=== PATIENT | female | born 1975 | race Caucasian/White ===

== ENCOUNTER 2021-11-28 14:40 | Emergency (ER) | payer MEDICARE, MEDICAID, SELFPAY ==
[2021-11-28] VITALS (21 sets, daily range): BP systolic 92–139; BP diastolic 50–105; PULSE 56–71; RESP 18; O2SAT 95–98
--- NOTE | 2021-11-28 14:50 | W.ED.GENAD ---
Discharge Plan Disposition Patient Disposition: HOME Condition: Stable Discharge Details Clinical Impression: Gastroenteritis Primary Care Provider: Jackie Akhtar ED Provider: Jg Katz Home Meds and New Rx's Prescriptions: Continued ferrous sulfate 325 mg (65 mg iron) Capsule, Extended Release 325 mg PO BID 0RF gabapentin 600 mg Tablet 1,200 mg TID 0RF ondansetron HCl 8 mg Tablet 8 mg TID 0RF hydromorphone [Dilaudid] 8 mg Tablet 8 mg QID 0RF clonazepam [Klonopin] 1 mg Tablet 1 mg TID 0RF liothyronine [Cytomel] 5 mcg Tablet 5 mcg DAILY 0RF hydrocodone-acetaminophen 10-500 mg Tablet 10 - 500 tab TID 0RF levothyroxine [Synthroid] 125 mcg Tablet 125 mcg DAILY 0RF sumatriptan succinate 6 mg/0.5 mL Pen Injector SUBCUT PRN0RF escitalopram oxalate [Lexapro] 20 mg Tablet 30 mg DAILY 0RF bupropion HCl [Wellbutrin XL] 300 mg Tablet Extended Release 24 Hr 300 mg PO DAILY 0RF acetaminophen [Tylenol] 325 mg Capsule 325 mg PO ONCE PRN0RF Discharge Instructions Instructions: Gastroenteritis (ED) Additional Instructions: As discussed if you have any new or significant worsening of your symptoms please return immediately to the emergency department for reassessment. Otherwise continue to stay well-hydrated and take your Zofran along with your previously prescribed medications. Please follow-up with [facility] for further follow-up from your surgical procedure. Referrals: [facility] [Outside] (Please call their office and arrange follow-up for reassessment of your postoperative incision and procedure.) Discharge Data Discharge Date/Time-TO BE ENTERED AT DEPARTURE: 11/28/21 19:34 Medical Decision Making <MALINDA Ridley - Last Filed: 11/29/21 19:37> Patient is a pleasant 46-year-old female presenting today with chief complaint of abdominal pain, fevers, nausea/vomiting, general malaise. She reports that she underwent a revision of her tummy On 11/18/2021. Subsequently developed fevers on 11/23/2021. States along with this, she began having increasing pain primarily in the left lower quadrant. Had otherwise been feeling well up until this point. States that she is intermittently also had shortness of breath, chest pain. States that she had a T-max of 101?F at home. States that she did take anti-inflammatory today prior to arrival. States that she had a bowel movement this morning that it was quite soft. Vomited x4, all nonbloody, today. Is currently endorsing nausea. States that she does have Zofran at home but that she did not take this. Patient reports that she did call [facility] on 11/23/2021 regarding her fever but has not reached out to them again. On exam, patient appears nontoxic. Her incision is healing quite well with no surrounding erythema, warmth, drainage. Her lungs are clear. Normal cardiac exam. Abdomen is tender in the left lower quadrant but no masses noted. Calves are soft and nontender, no lower extremity edema. Past medical history reviewed from [facility]. Pertinent for Jensen's thyroiditis, chronic headaches, asthma, chronic back pain, hypertension, subarachnoid hemorrhage, hypercholesterolemia, drug abuse and dependence, depression, COPD, anxiety, agoraphobia, panic disorder, bilateral pulmonary emboli, chronic benzodiazepine use, postoperative infection. Patient does describe using IV Bactrim in the postop setting after her initial panniculectomy. Differential at this time is quite broad. I did consider pulmonary embolism she does have a history of PE and DVT. She does not have clinical evidence of DVT at this time. As her D-dimer is slightly be elevated with her recent surgery, will move forward with CT for PE protocol. Consider possible surgical infection although her incisions look quite good at this time. Will obtain blood cultures, urine cultures. Also considered unrelated pathology associated with her left-sided abdominal pain such as diverticulitis. Will obtain imaging from baseline labs and reassess. Also considered noninfectious etiologies such as medication withdrawal as patient does have history of drug abuse and has been on 8 mg of Dilaudid 4 times daily. At the end of my shift, labs and imaging pending. Care transition to Jg Katz NP at bedside. <Jg Katz NP - Last Filed: 12/02/21 08:16> Patient is a pleasant 46-year-old female presenting today with chief complaint of abdominal pain, fevers, nausea/vomiting, general malaise. She reports that she underwent a revision of her tummy On 11/18/2021. Subsequently developed fevers on 11/23/2021. States along with this, she began having increasing pain primarily in the left lower quadrant. Had otherwise been feeling well up until this point. States that she is intermittently also had shortness of breath, chest pain. States that she had a T-max of 101?F at home. States that she did take anti-inflammatory today prior to arrival. States that she had a bowel movement this morning that it was quite soft. Vomited x4, all nonbloody, today. Is currently endorsing nausea. States that she does have Zofran at home but that she did not take this. Patient reports that she did call [facility] on 11/23/2021 regarding her fever but has not reached out to them again. On exam, patient appears nontoxic. Her incision is healing quite well with no surrounding erythema, warmth, drainage. Her lungs are clear. Normal cardiac exam. Abdomen is tender in the left lower quadrant but no masses noted. Calves are soft and nontender, no lower extremity edema. Past medical history reviewed from [facility]. Pertinent for Jensen's thyroiditis, chronic headaches, asthma, chronic back pain, hypertension, subarachnoid hemorrhage, hypercholesterolemia, drug abuse and dependence, depression, COPD, anxiety, agoraphobia, panic disorder, bilateral pulmonary emboli, chronic benzodiazepine use, postoperative infection. Patient does describe using IV Bactrim in the postop setting after her initial panniculectomy. Differential at this time is quite broad. I did consider pulmonary embolism she does have a history of PE and DVT. She does not have clinical evidence of DVT at this time. As her D-dimer is slightly be elevated with her recent surgery, will move forward with CT for PE protocol. Consider possible surgical infection although her incisions look quite good at this time. Will obtain blood cultures, urine cultures. Also considered unrelated pathology associated with her left-sided abdominal pain such as diverticulitis. Will obtain imaging from baseline labs and reassess. Also considered noninfectious etiologies such as medication withdrawal as patient does have history of drug abuse and has been on 8 mg of Dilaudid 4 times daily. At the end of my shift, labs and imaging pending. Care transition to Jg Katz NP at bedside. [id number] see above for initial documentation and physical exam and plan for patient. I agree with Hoa Pope's initial assessment and plan. Reviewed further labs which are overall nonworrisome. Patient does have slight elevation of WBC neutrophils and monocytes but otherwise unremarkable work-up. Reviewed CT imaging that shows a small right lower lung nodule but otherwise no acute findings are noted on chest or abdomen pelvis. Reviewed findings with patient and she stated previous knowledge of nodule and that she has been followed by department for this. Further discussion with patient is that she has been having some diarrhea along with her abdominal pain and vomiting today. I suspect possible gastroenteritis given otherwise benign work-up. Offered to contact patient's surgeon but given no postoperative worrisome findings on imaging patient stated that she would call their office and follow-up with them on her own. We will plan to treat patient symptoms conservatively with patient having clear understanding to return for any new or significant worsening of symptoms. After discussion of diagnosis and plan of care patient has no further needs, questions, or concerns and states clear understanding to return to the emergency department for any worsening symptoms. Imaging Data Radiologic Study: Imaging: CT Scan Radiologist's impression: CT Chest IMPRESSION: 1. No pulmonary arterial embolism. 2. Right lower lobe 0.4 cm subpleural nodule. Recommend follow-up CT Chest in 6-12 months. (References: [place] and Karissa) CT ABD/Pelvis IMPRESSION: 1. No aortic aneurysm. Inadequate opacification of the aorta to evaluate for dissection. 2. No acute findings Lab Data Labs: 11/28/21 13:23 Blood Blood Culture - Pending 11/28/21 13:23 Blood Blood Culture - Pending Laboratory Tests Range/Units 11/28/21 11/28/21 11/28/21 14:50 14:50 14:50 WBC (4.4-10.8) 10^3/uL 13.33 H RBC (3.93-5.22) 10^6/uL 5.43 H Hgb (11.2-15.7) g/dL 14.0 Hct (36.0-46.0) % 44.2 MCV (80-95) fL 81.4 MCH (27.0-33.0) pg 25.8 L MCHC (32.0-36.0) % 31.7 L RDW (11.7-14.6) % 19.1 H Plt Count (130-400) 10^3/uL 502 H MPV (8.0-11.0) fL 9.0 Immature Gran % 0.4 Neutrophils % 67.3 Lymphocytes % 23.6 Monocytes % 6.3 Eosinophils % 1.5 Basophils % 0.9 Nucleated RBC % % 0 Absolute Neutrophils (1.2-6.7) 10^3/uL 8.97 H Absolute Lymphocytes (1.2-3.4) 10^3/uL 3.15 Absolute Monocytes (0.1-0.8) 10^3/uL 0.84 H Absolute Eosinophils (0.0-0.7) 10^3/uL 0.20 Absolute Basophils (0.0-0.2) 10^3/uL 0.12 VBG Lactate (0.6-1.4) mmol/L 1.2 Sodium (136-145) mmol/L 141 Potassium (3.5-5.1) mmol/L 3.8 Chloride (98-107) mmol/L 104 Carbon Dioxide (21.0-32.0) mmol/L 27.9 Anion Gap (3-11) mmol/L 9.1 BUN (7-18) mg/dL 11 Creatinine (0.55-1.02) mg/dL 0.9 Estimated GFR/1.73 m2 (mL/min/1.73m2) >= 60.00 Glucose (74-106) mg/dL 93 Calcium (8.5-10.1) mg/dL 9.2 Magnesium (1.8-2.4) mg/dL 2.2 Total Bilirubin (0.2-1.0) mg/dL 0.3 AST (15-37) U/L 21 ALT (14-59) U/L 25 Alkaline Phosphatase (46-116) U/L 88 Troponin I (<or=60) ng/L < 50 Total Protein (6.4-8.2) g/dL 8.4 H Albumin (3.4-5.0) g/dL 3.9 Lipase (73-393) U/L 50 Urine Color (Yellow) Urine Clarity (Clear) Urine pH (5-8) Ur Specific Bowie (1.005-1.025) Urine Protein (Negative) mg/dL Urine Ketones (Negative) mg/dL Urine Blood (Negative) Urine Nitrite (Negative) Urine Bilirubin (Negative) Urine Urobilinogen (Up TO 0.2) EU/dL Ur Leukocyte Esterase (Negative) Urine RBC (0-2) HPF Urine WBC (0-5) HPF Ur Epithelial Cells (Negative) HPF Urine Crystals (Negative) HPF Urine Bacteria (Negative) HPF Urine Casts (Negative) LPF Urine Mucus (Negative) Ur Culture Indicated? Urine Glucose (Negative) mg/dL Range/Units 11/28/21 11/28/21 16:09 17:58 WBC (4.4-10.8) 10^3/uL RBC (3.93-5.22) 10^6/uL Hgb (11.2-15.7) g/dL Hct (36.0-46.0) % MCV (80-95) fL MCH (27.0-33.0) pg MCHC (32.0-36.0) % RDW (11.7-14.6) % Plt Count (130-400) 10^3/uL MPV (8.0-11.0) fL Immature Gran % Neutrophils % Lymphocytes % Monocytes % Eosinophils % Basophils % Nucleated RBC % % Absolute Neutrophils (1.2-6.7) 10^3/uL Absolute Lymphocytes (1.2-3.4) 10^3/uL Absolute Monocytes (0.1-0.8) 10^3/uL Absolute Eosinophils (0.0-0.7) 10^3/uL Absolute Basophils (0.0-0.2) 10^3/uL VBG Lactate (0.6-1.4) mmol/L Sodium (136-145) mmol/L Potassium (3.5-5.1) mmol/L Chloride (98-107) mmol/L Carbon Dioxide (21.0-32.0) mmol/L Anion Gap (3-11) mmol/L BUN (7-18) mg/dL Creatinine (0.55-1.02) mg/dL Estimated GFR/1.73 m2 (mL/min/1.73m2) Glucose (74-106) mg/dL Calcium (8.5-10.1) mg/dL Magnesium (1.8-2.4) mg/dL Total Bilirubin (0.2-1.0) mg/dL AST (15-37) U/L ALT (14-59) U/L Alkaline Phosphatase (46-116) U/L Troponin I (<or=60) ng/L < 50 Total Protein (6.4-8.2) g/dL Albumin (3.4-5.0) g/dL Lipase (73-393) U/L Urine Color (Yellow) Yellow Urine Clarity (Clear) Clear Urine pH (5-8) 8.5 H Ur Specific Bowie (1.005-1.025) 1.020 Urine Protein (Negative) mg/dL Negative Urine Ketones (Negative) mg/dL Negative Urine Blood (Negative) Negative Urine Nitrite (Negative) Negative Urine Bilirubin (Negative) Negative Urine Urobilinogen (Up TO 0.2) EU/dL 0.2 Ur Leukocyte Esterase (Negative) Trace H Urine RBC (0-2) HPF 0-2 Urine WBC (0-5) HPF 3-5 Ur Epithelial Cells (Negative) HPF Many Urine Crystals (Negative) HPF Negative Urine Bacteria (Negative) HPF Few Urine Casts (Negative) LPF Negative Urine Mucus (Negative) Moderate Ur Culture Indicated? No/Sq. Contamination Urine Glucose (Negative) mg/dL Negative HPI <MALINDA Ridley - Last Filed: 11/29/21 19:37> General Date/Time Provider Initiated Documentation: 11/28/21 14:50. Limitations to Documentation: no limitations. Information obtained by: patient, RN notes reviewed and old records reviewed. History of Present Illness 46 year old F presents to the emergency department with the chief complaint of abdominal pain, fevers, described as severe, with intensity rated at 9. Quality is described as aching, and is localized to the abdomen. Patient reports no radiation. Patient started experiencing this day(s) and it has been constant. improves with No relieving factors improve symptom(s), No exacerbating factors reported . Patient notes chest pain (intermittent, unclear if this is linked with abdominal pain, it is non-exertional), fever/chills, loss of appetite, nausea/vomiting and shortness of breath; denies confusion, cough and rash. Patient did receive the following treatments prior to arrival, none Related Data Home Medications Medication Instructions Recorded Confirmed acetaminophen 325 mg capsule 325 mg PO ONCE PRN 11/28/21 11/28/21 (Tylenol) bupropion HCl 300 mg 24 hr tablet, 300 mg PO DAILY 11/28/21 11/28/21 extended release (Wellbutrin XL) clonazepam 1 mg tablet (Klonopin) 1 mg TID 11/28/21 11/28/21 escitalopram oxalate 20 mg tablet 30 mg DAILY 11/28/21 11/28/21 (Lexapro) ferrous sulfate 325 mg (65 mg 325 mg PO BID 11/28/21 11/28/21 iron) capsule,extended release gabapentin 600 mg tablet 1,200 mg TID 11/28/21 11/28/21 hydrocodone 10 mg-acetaminophen 10 - 500 tab TID 11/28/21 11/28/21 500 mg tablet hydromorphone 8 mg tablet 8 mg QID 11/28/21 11/28/21 (Dilaudid) levothyroxine 125 mcg tablet 125 mcg DAILY 11/28/21 11/28/21 (Synthroid) liothyronine 5 mcg tablet (Cytomel) 5 mcg DAILY 11/28/21 11/28/21 ondansetron HCl 8 mg tablet 8 mg TID 11/28/21 11/28/21 sumatriptan succinate 6 mg/0.5 mL mg SUBCUT PRN 11/28/21 subcutaneous pen injector Allergies Allergy/AdvReac Type Severity Reaction Status Date / Time codeine Allergy Intermediate Hives Unverified 11/30/21 10:46 onabotulinumtoxinA Allergy Intermediate Hives Unverified 11/30/21 10:46 [From Botox] hydroxyzine [From Vistaril] AdvReac Unverified 11/30/21 10:46 oxycodone AdvReac Unverified 11/30/21 10:46 General Stated Complaint: Abd Prob SOHAIL: 3 Review of Systems <MALINDA Ridley - Last Filed: 11/29/21 19:37> Constitutional Constitutional: Reports as per HPI, Reports chills, Reports fatigue, Reports fever(s), Denies headache(s) and Reports poor appetite ENT Ears, Nose, Mouth, and Throat: Denies headache(s) Cardiovascular Cardiovascular: Reports as per HPI, Reports chest pain, Reports chest pain at rest, Denies chest pain with activity, Denies pedal edema, Denies leg edema, Denies radiating jaw, neck or arm pain, Reports dyspnea and Denies dyspnea on exertion Respiratory Respiratory: Reports as per HPI, Denies cough, Reports dyspnea and Denies dyspnea on exertion Gastrointestinal Gastrointestinal: Reports as per HPI Genitourinary Genitourinary: Reports as per HPI Musculoskeletal Musculoskeletal: Reports as per HPI and Denies back pain Integumentary/Breasts Skin/Breast: Reports as per HPI and Denies rash Neurologic Neurologic: Reports as per HPI and Denies headache(s) Endocrine Endocrine: Reports fatigue PFSH <MLAINDA Ridley Last Filed: 11/29/21 19:37> All Active Problems (System 11/30/21 @ 10:46 by Aida Sesay) Gastroenteritis (Acute) Social History (System 11/30/21 @ 10:46 by Aida Sesay) Smoking/Tobacco Use Status: Never Smoking risk assessment performed?: Yes Alcohol Intake: never Drug use: Daily Substance use type: marijuana Do you feel safe at home: Yes Do you feel safe in your relationship?: Yes Exam <MALINDA Ridley Last Filed: 11/29/21 19:37> Const General: cooperative, healthy appearing, comfortable, no acute distress and well developed Nutritional Appearance: average body habitus and well nourished Orientation: alert and awake HENMT Head: normal to inspection Mouth: moist mucous membranes Resp Effort & Inspection: normal respiratory effort, able to speak in complete sentences and no respiratory distress Auscultation: clear to auscultation bilaterally, no rales, no rhonchi and no wheezes Cardio Rate: regular rate Rhythm: regular rhythm Heart Sounds: S1 normal and S2 normal GI Inspection: normal to inspection (incision healing well with no erythema, warmth, drainage) Palpation: soft, no hepatosplenomegaly, not firm, no guarding, no masses, no pulsatile masses, not rigid and tender in the LLQ; Negative for not at McBurney's point and with no rebound tenderness Back/Spine/Pelvis Back: no CVA tenderness Skin General skin exam: no rashes or lesions noted Trauma: no lacerations or abrasions Neuro General: patient alert and patient awake Cognition: normal cognition Speech: speech normal Gait: normal gait Extrem General: normal to inspection, capillary refill normal, no pedal edema and no calf tenderness Psych Appearance: grossly normal and well kempt Mental Status: mental status grossly normal Speech and Movement: speech and movement normal Course <MALINDA Ridley Last Filed: 11/29/21 19:37> Vital Signs Vital signs: Vital Signs Pulse 69 11/28/21 14:40 Respiratory Rate 18 11/28/21 14:40 Blood Pressure 109/90 11/28/21 14:40 Pulse Oximetry 96 11/28/21 14:40 Temperature Source Temporal Artery Scan 11/28/21 14:40 Pulse 69 11/28/21 14:40 Respiratory Rate 18 11/28/21 14:40 Respiratory Effort Non-Labored 11/28/21 14:45 Blood Pressure 109/90 11/28/21 14:40 Blood Pressure Position Supine 11/28/21 14:40 Pulse Oximetry 96 11/28/21 14:40 Oxygen Delivery Method Room Air 11/28/21 14:40 Oxygen Flow Rate 0 11/28/21 14:40 Pain Level 9 11/28/21 14:40 Sign Out <MALINDA Ridley - Last Filed: 11/29/21 19:37> Sign Out Data: Sign Out Comment: Care transitioned to Lenin Katz NP with imaging and labs pending. Recent surgical intervention at [facility], 11/18/21. Now with fever, LLQ pain, CP, SOB. Last updated by Hoa Pope PA at 11/28/21 16:21
--- NOTE | 2021-11-28 15:00 | RT.EKG_ITS ---
APPROVED REPORT Exam: Resting ECG Reason for Exam: Patient Location: E HR:60 bpm ECG Measurements Heart Rate 60 AXIS DC 176 P 70 QRSd 100 QRS 26 QT 434 T 31 QTc 434 Conclusion Sinus rhythm...normal P axis, V-rate 60- 99
[2021-11-28 15:29] LABS: Abs Immature Grans 0.05 10^3/uL (0.0-0.06); Absolute Basophil Count 0.12 10^3/uL (0.0-0.2); Absolute Monocyte Count 0.84 10^3/uL (0.1-0.8); Basophils % 0.9; Eosinophils % 1.5; HCT 44.2 % (36.0-46.0); Immature Grans % 0.4; Lactate 1.2 mmol/L (0.6-1.4); Lymphocytes % 23.6; MCH 25.8 pg (27.0-33.0); MCHC 31.7 % (32.0-36.0); MCV 81.4 fL (80-95); Monocytes % 6.3; Neutrophils % 67.3; Nucleated RBC 0 %; Platelet Count 502 10^3/uL (130-400); RBC 5.43 10^6/uL (3.93-5.22); RDW 19.1 % (11.7-14.6); RDW-SD 56.8 fL; WBC 13.33 10^3/uL (4.4-10.8)
[2021-11-28 15:30] LABS: Absolute Lymphocyte Count 3.15 10^3/uL (1.2-3.4); Absolute Neutrophil Count 8.97 10^3/uL (1.2-6.7)
[2021-11-28] MEDS: Ondansetron 4 MG/2 ML VIAL IVP (15:45)
[2021-11-28] MEDS: Lactated Ringers 1,000 ML 1000 ML IV (15:45)
[2021-11-28 15:58] LABS: ALT 25 U/L (14-59); AST 21 U/L (15-37); Albumin 3.9 g/dL (3.4-5.0); Alkaline Phosphatase 88 U/L (46-116); Anion Gap 9.1 mmol/L (3-11); BUN 11 mg/dL (7-18); Bilirubin, Total 0.3 mg/dL (0.2-1.0); CO2 27.9 mmol/L (21.0-32.0); CREATININE 0.9 mg/dL (0.55-1.02); Calcium 9.2 mg/dL (8.5-10.1); Chloride 104 mmol/L (98-107); Glucose 93 mg/dL (74-106); Lipase 50 U/L (73-393); Magnesium 2.2 mg/dL (1.8-2.4); Potassium 3.8 mmol/L (3.5-5.1); Sodium 141 mmol/L (136-145); Total Protein 8.4 g/dL (6.4-8.2); Troponin I < 50 ng/L (<or=60)
[2021-11-28 16:24] LABS: Bilirubin Negative (Negative); Blood Negative (Negative); Clarity Clear (Clear); Glucose Negative (Negative); Ketones Negative (Negative); Leukocyte Esterase Trace (Negative); Nitrite Negative (Negative); Urobilinogen 0.2 EU/dL (Up TO 0.2); pH 8.5 (5-8)
[2021-11-28 16:31] LABS: Bacteria Few HPF (Negative); C & S Indicated? No/Sq. Contamination; Casts Negative LPF (Negative); Crystals Negative HPF (Negative); Epithelial Cells Many HPF (Negative); Mucus Moderate (Negative); RBC 0-2 HPF (0-2)
[2021-11-28] MEDS: Omnipaque 350 MG/ML 100 ML BTL IJ (17:25)
--- NOTE | 2021-11-28 17:35 | DI.CT_ITS ---
Exam(s) CT CHEST PE ABD PELVIS W EXAM: CT CHEST PE ABD PELVIS W CLINICAL HISTORY: SOB, recent surgery, hx of DVT, LLQ pain. TECHNIQUE: Imaging Protocol: Axial CT angiography was performed with multi-slice acquisition and mu lti-planar and/or 3D reconstructions. CONTRAST MATERIAL: Intravenous: Omnipaque 350 Contrast volume:100 mL COMPARISON: No exams were available for comparison FINDINGS: The examination is limited due to patient motion artifact. CHEST: Tracheobronchial tree: Patent where visualized. Pulmonary parenchyma: No consolidation or dominant measurable mass. No architectural distortion. Ther e are noncalcified pulmonary nodules present. The largest measures 5 mm and is located in the right middle lobe. Pulmonary Arteries: No evidence of filling defect to suggest pulmonary emboli. Mediastinum and Abigail: No dominant adenopathy or fluid collection. The esophagus is unremarkable. Visualized thyroid gland: There are surgical clips in the thyroid bed suggesting prior thyroidectomy. Pleura: No effusion or pneumothorax. Heart: The heart is not dilated. No coronary artery calcifications are seen. No pericardial effusion. Aorta: Thoracic aorta non-dilated. No evidence of dissection. Bones: Within normal limits for the patient's age. Soft tissues: Unremarkable. ABDOMEN: Liver: Normal density. No measurable mass. Portal, Superior Mesenteric, and Splenic Veins: Unremarkable. Gallbladder and Biliary Tract: Status post cholecystectomy. The common duct measures 1 cm. This may be secondary to the post cholecystectomy state. Pancreas: Normal density, no abnormal calcifications or inflammatory process. Spleen: Normal. Adrenals: No masses seen. 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 This is a normal variant. No radiodense stones or obst ructive uropathy. No masses seen. Abdominal Aorta: Abdominal portion non-dilated. Atherosclerosis. Bowel: No obstruction or bowel wall thickening. No evidence of appendicitis. Peritoneal Cavity: No ascites, collection or mesenteric inflammatory response. No free air. Lymph Nodes: Within normal limits. Bones: Within normal limits for the patient's age. Lemon ectomy changes are seen in the lower lumbar spine. Soft Tissues: There is a 2.1 x 2.3 cm fluid collection in the subcutaneous tissues posterior to the p ostsurgical changes in the lower lumbar spine. There is edema seen in the soft tissues in the lower anterior abdominal wall. PELVIS: Bladder: The urinary bladder is incompletely distended. There is diffuse thickening of the wall of t he urinary bladder which may be due to underdistention. Reproductive Organs: Unremarkable as visualized. Lymph Nodes: Within normal limits. Bones: Within normal limits. IMPRESSION: 1. No evidence pulmonary embolism, thoracic aortic dissection or aneurysm. 2. Pulmonary nodules. The largest measures 5 mm. A follow-up CT scan of the chest is recommended in 6-12 months. 3. No evidence of an abdominal aortic aneurysm. 4. Postsurgical changes in the anterior abdominal wall and lumbar spine. 5. Mild edema seen in the lower anterior abdominal wall. No focal fluid collection is seen to sugges t an abscess. 6. Wall enhancing fluid collection in the subcutaneous tissues posterior to the lumbar spine surgery. No inflammatory changes in the surrounding soft tissues. Differential considerations include serom a, hematoma or abscess. Please compare to prior examinations to assess for its previous presence and /or stability. RADIATION DOSE DELIVERED: 1,307.09mGy.cm Total DLP DATA REPOSITORY: All CT scans at this facility are submitted to the National Radiology Data Registry (NRDR) Dose Index Registry (DIR) with the [employer] ([employer]). RADIATION OPTIMIZATION: All CT scans at this facility use at least one of these dose optimization te chniques: automated exposure control; mA and/or kV adjustment per patient size (includes targeted exa ms where dose is matched to clinical indication); or iterative reconstruction.
[2021-11-28] MEDS: ACETAMINOPHEN 1,000 MG/100 ML BTL 400 MG IVPB (18:06)
[2021-11-28 18:21] LABS: Troponin I < 50 ng/L (<or=60)
--- NOTE | 2021-11-28 18:52 | DI.VRAD_ITS ---
PROCEDURE INFORMATION: Exam: CTA Chest With Contrast Exam date and time: 11/28/2021 5:17 PM Age: 46 years old Clinical indication: Patient HX: SOB, recent surgery, HX of dvt, llq pain, PT had abdominoplasty jul 2019 TECHNIQUE: Imaging protocol: Computed tomographic angiography of the chest with contrast. 3D rendering (Not supervised by radiologist): MIP and/or 3D reconstructed images were created by the technologist. Total images: [id number] Radiation optimization: All CT scans at this facility use at least one of these dose optimization techniques: automated exposure control; mA and/or kV adjustment per patient size (includes targeted exams where dose is matched to clinical indication); or iterative reconstruction. Contrast material: OMNIPAQUE 350; Contrast volume: 100 ml; Contrast route: INTRAVENOUS (IV); COMPARISON: No relevant prior studies available. FINDINGS: Pulmonary arteries: No main, lobar or segmental pulmonary arterial embolism. Aorta: Atherosclerosis. No aortic aneurysm. Lungs: There is a 0.4 cm right lower lobe subpleural pulmonary nodule (series 11 image 269). Pleural spaces: Unremarkable. No pneumothorax. No pleural effusion. Heart: Unremarkable. No cardiomegaly. No pericardial effusion. Lymph nodes: Unremarkable. No enlarged lymph nodes. Bones/joints: Unremarkable. No acute fracture. Soft tissues: Unremarkable. Other findings: Images are degraded by patient respiratory motion artifact. IMPRESSION: 1. No pulmonary arterial embolism. 2. Right lower lobe 0.4 cm subpleural nodule. Recommend follow-up CT Chest in 6-12 months. (References: Anna) REFERENCES: Karissa J, et al. Updated Fleischner Society Guidelines for Managing Incidental Pulmonary Nodules: Common Questions and Challenging Scenarios. Radiographics. 2018;38(5):3490-4913. PROCEDURE INFORMATION: Exam: CTA Abdomen and Pelvis With Contrast Exam date and time: 11/28/2021 5:17 PM Age: 46 years old Clinical indication: Patient HX: SOB, recent surgery, HX of dvt, llq pain, PT had abdominoplasty jul 2019 TECHNIQUE: Imaging protocol: Computed tomographic angiography of the abdomen and pelvis with contrast material. 3D rendering (Not supervised by radiologist): MIP and/or 3D reconstructed images were created by the technologist. Radiation optimization: All CT scans at this facility use at least one of these dose optimization techniques: automated exposure control; mA and/or kV adjustment per patient size (includes targeted exams where dose is matched to clinical indication); or iterative reconstruction. Contrast material: OMNIPAQUE 350; Contrast volume: 100 ml; Contrast route: INTRAVENOUS (IV); COMPARISON: No relevant prior studies available. FINDINGS: Aorta: No aortic aneurysm. Inadequate opacification of the aorta to evaluate for dissection. Celiac trunk and mesenteric arteries: No occlusion or significant stenosis. Renal arteries: No occlusion or significant stenosis. Right iliac arteries: No occlusion or significant stenosis. Left iliac arteries: No occlusion or significant stenosis. Liver: No mass. Gallbladder and bile ducts: The gallbladder is surgically absent. Pancreas: Unremarkable. No mass. No ductal dilation. Spleen: Unremarkable. No splenomegaly. Adrenal glands: Unremarkable. No mass. 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 No hydronephrosis. Stomach and bowel: Unremarkable. No obstruction. No mucosal thickening. Appendix: No evidence of appendicitis. Intraperitoneal space: Unremarkable. No free air. No significant fluid collection. Lymph nodes: Unremarkable. No enlarged lymph nodes. Urinary bladder: Unremarkable. No mass. Reproductive: Unremarkable as visualized. Bones/joints: No acute fracture. No dislocation. Soft tissues: There is inflammatory fat stranding/fluid in the lower anterior abdominal wall. No rim enhancement to suggest abscess. There is surgical mesh in the anterior abdominal wall. IMPRESSION: 1. No aortic aneurysm. Inadequate opacification of the aorta to evaluate for dissection. 2. No acute findings. Dictated and Authenticated by: Angela Blankenship MD. Ordering:VIANNEY Camara MD
== END 2021-11-28 19:34 | disposition home or self-care (01) ==
LOC: ER 19:54
PROVIDERS: Physician Assistant; Emergency Provider Nurse Practitioner Family; PCP Nurse Practitioner
DX: K52.9 Noninfective gastroenteritis and colitis, unspecified (principal); R50.9 Fever, unspecified; R11.2 Nausea with vomiting, unspecified; R06.02 Shortness of breath; R10.32 Left lower quadrant pain; R07.9 Chest pain, unspecified
CPT/HCPCS: 36415; 71275; 74177; 80053; 83690; 87040; 93005; 96361; 96365; 96375; 99285; 81003; 81015; 83605; 83735; 84484; 85025; 93010; 99284; J0131; J2405; J3490